=== PATIENT | male | born 1965 | race African-American/Black ===

== ENCOUNTER 2021-12-17 19:30 | Emergency (ER) | payer MEDICAID ==
[~2021-12-17] VITALS: Ht 200.7 cm; Wt 121.0 kg
[2021-12-17] MEDS ORDERED: IBUPROFEN 400MG TABLET PO ONE (21:00)
[2021-12-17] MEDS ORDERED: SODIUM CHLORIDE 0.9% 1,000 ML IV ONE (21:00)
[2021-12-17 21:20] LABS: BASOPHILS % 1.2 % (0.0-2.0); EOSINOPHILS % 3.4 % (0.0-5.0); HEMATOCRIT. 41.6 % (42.0-52.0); HEMOGLOBIN. 14.3 g/dL (14.0-18.0); LYMPHOCYTES % 65.5 % (20.0-50.0); MEAN CORPUSCULAR HEMOGLOBIN 31.8 pg (28.0-32.0); MEAN CORPUSCULAR VOLUME 92.1 fL (80.0-94.0); MEAN PLATELET VOLUME 7.1 fl (7.4-10.4); MONOCYTES % 5.8 % (2.0-8.0); NEUTROPHILS % 24.1 % (40.0-76.0); PLATELET 294 x1000/uL (130-400); RED BLOOD CELL COUNT 4.51 mill/uL (4.7-6.1); RED CELL DISTRIBUTION WIDTH 15.7 % (11.6-14.6)
[2021-12-17 21:31] LABS: CHLORIDE 112 mEq/L (98-107)
[2021-12-17 21:43] LABS: ETHANOL BLOOD 345 mg/dL
[2021-12-18 05:35] VITALS: BP 104/71
== END 2021-12-18 05:42 | disposition home or self-care (01) ==
LOC: ER 19:30
DX: F10.229 Alcohol dependence with intoxication, unspecified (principal); M25.512 Pain in left shoulder; M25.522 Pain in left elbow; E11.9 Type 2 diabetes mellitus without complications; E78.00 Pure hypercholesterolemia, unspecified; I10 Essential (primary) hypertension; Y90.8 Blood alcohol level of 240 mg/100 ml or more; W18.30XA Fall on same level, unspecified, initial encounter; Y93.89 Activity, other specified; Y92.488 Other paved roadways as the place of occurrence of the external cause
CPT/HCPCS: 36415; 70450; 73030; 73080; 80053; 80320; 82962; 85025; 93005; 96360; 99285; J7030; G0480

== ENCOUNTER 2022-01-08 12:22 | Inpatient (IN) | payer MEDICAID ==
[~2022-01-08] VITALS: Ht 200.7 cm; Wt 122.6 kg
[2022-01-08] MEDS ORDERED: MORPHINE SULFATE 4 MG/ML CPJ (NOT FOR IM USE) IV STA (12:55)
[2022-01-08] MEDS ORDERED: ONDANSETRON HCL 4MG/2ML INJ IV STA (12:55)
[2022-01-08] MEDS ORDERED: SODIUM CHLORIDE 0.9% 1,000 ML IV ONE (13:00)
[2022-01-08] MEDS ORDERED: PANTOPRAZOLE SODIUM 40 MG/VIAL IV ONE (13:00)
[2022-01-08] MEDS ORDERED: LEVETIRACETAM 500MG PREMIX 100 ML IV ONE (13:15)
[2022-01-08 13:30] LABS: HEMATOCRIT. 46.2 % (42.0-52.0); HEMOGLOBIN. 15.9 g/dL (14.0-18.0); MEAN CORPUSCULAR HEMOGLOBIN 31.7 pg (28.0-32.0); MEAN CORPUSCULAR VOLUME 92.6 fL (80.0-94.0); MEAN PLATELET VOLUME 7.1 fl (7.4-10.4); PLATELET 240 x1000/uL (130-400); RED BLOOD CELL COUNT 4.99 mill/uL (4.7-6.1); RED CELL DISTRIBUTION WIDTH 15.3 % (11.6-14.6)
[2022-01-08 13:37] LABS: CHLORIDE 105 mEq/L (98-107)
[2022-01-08 13:41] LABS: INR 1.2; PARTIAL THROMBOPLASTIN TIME 27.1 sec (23.4-31.0)
[2022-01-08] MEDS ORDERED: ONDANSETRON HCL 4MG/2ML INJ IV PRN (16:30)
[2022-01-08] MEDS ORDERED: PANTOPRAZOLE SODIUM 40 MG/VIAL IV SCH (16:30)
[2022-01-08] MEDS ORDERED: LEVETIRACETAM 500 MG in SODIUM CHLORIDE 0.9% 100 ML IV SCH (16:30)
[2022-01-08 19:21] LABS: PLATELET ESTIMATE NORMAL
[2022-01-08 21:00] VITALS: BP 130/97
[2022-01-08] MEDS ORDERED: LEVETIRACETAM 500MG PREMIX 100 ML IV SCH (21:00)
[2022-01-08] MEDS ORDERED: NALOXONE HCL 0.4MG/ML VIAL IV PRN (21:45)
[2022-01-08] MEDS: MORPHINE SULFATE 2 MG/ML CPJ (NOT FOR IM USE) IV PRN (21:57)
[2022-01-08] MEDS: LEVETIRACETAM 500MG PREMIX 100 ML IV SCH (23:16)
[2022-01-09] VITALS: BP 116/66
[2022-01-09 04:00] VITALS: BP 134/88
[2022-01-09] MEDS: MORPHINE SULFATE 2 MG/ML CPJ (NOT FOR IM USE) IV PRN ×4 (06:40→20:48)
[2022-01-09 07:22] LABS: CLARITY URINE CLEAR (CLEAR); COLOR URINE DARK YELLOW (YELLOW); KETONES URINE TRACE (NEGATIVE); LEUKOCYTE ESTERASE URINE NEGATIVE (NEGATIVE); NITRITE URINE NEGATIVE (NEGATIVE); OCCULT BLOOD URINE NEGATIVE (NEGATIVE); PH URINE 5.5 (4.5-8.0); PROTEIN URINE NEGATIVE (NEGATIVE); SPECIFIC GRAVITY URINE 1.028 (1.005-1.030)
[2022-01-09 07:37] LABS: *AMPHETAMINES SCREEN URINE NEGATIVE (NEGATIVE); *BARBITURATES SCREEN URINE PRESUMTIVE POSITIVE (NEGATIVE); *BENZODIAZEPINES SCREEN URINE PRESUMTIVE POSITIVE (NEGATIVE); *COCAINE SCREEN URINE NEGATIVE (NEGATIVE); METHADONE URINE SCREEN NEGATIVE (NEGATIVE)
[2022-01-09 07:38] LABS: CANNABINOID URINE SCREEN NEGATIVE (NEGATIVE); OPIATES URINE SCREEN PRESUMTIVE POSITIVE (NEGATIVE); PHENCYCLIDINE URINE SCREEN NEGATIVE (NEGATIVE)
[2022-01-09 08:00] VITALS: BP 133/68
[2022-01-09] MEDS: THIAMINE HCL 100MG TABLET PO SCH (09:41)
[2022-01-09] MEDS: LEVETIRACETAM 500MG PREMIX 100 ML IV SCH ×2 (09:41→20:48)
[2022-01-09] MEDS: FOLIC ACID 1MG TABLET PO SCH (09:41)
[2022-01-09 10:17] LABS: CHLORIDE 106 mEq/L (98-107)
[2022-01-09 10:23] LABS: BASOPHILS % 2.2 % (0.0-2.0); EOSINOPHILS % 1.9 % (0.0-5.0); HEMATOCRIT. 41.6 % (42.0-52.0); HEMOGLOBIN. 14.5 g/dL (14.0-18.0); LYMPHOCYTES % 52.9 % (20.0-50.0); MEAN CORPUSCULAR VOLUME 91.6 fL (80.0-94.0); MEAN PLATELET VOLUME 7.4 fl (7.4-10.4); PLATELET 185 x1000/uL (130-400); RED BLOOD CELL COUNT 4.54 mill/uL (4.7-6.1); RED CELL DISTRIBUTION WIDTH 15.4 % (11.6-14.6)
[2022-01-09 10:25] LABS: HDL CHOLESTEROL 15 mg/dL (40-59); LDL CHOLESTEROL 15 mg/dL (5-100)
[2022-01-09 12:00] VITALS: BP 143/80
[2022-01-09 16:00] VITALS: BP 137/82
[2022-01-09] MEDS: CHLORDIAZEPOXIDE 25MG CAPSULE PO SCH ×2 (19:40→23:14)
[2022-01-09 20:00] VITALS: BP 129/82
[2022-01-09] MEDS ORDERED: CHLORDIAZEPOXIDE 25MG CAPSULE PO SCH ×2 (21:00→22:00)
[2022-01-10] VITALS: BP 127/84
[2022-01-10 04:00] VITALS: BP 130/76
[2022-01-10] MEDS: CHLORDIAZEPOXIDE 25MG CAPSULE PO SCH ×3 (05:26→17:16)
[2022-01-10 08:00] VITALS: BP 136/81
[2022-01-10] MEDS: LEVETIRACETAM 500MG TABLET PO SCH ×2 (08:42→20:50)
[2022-01-10] MEDS: THIAMINE HCL 100MG TABLET PO SCH (08:42)
[2022-01-10] MEDS: PANTOPRAZOLE 40MG DR TABLET PO SCH (08:42)
[2022-01-10] MEDS: FOLIC ACID 1MG TABLET PO SCH (08:43)
[2022-01-10] MEDS: MORPHINE SULFATE 2 MG/ML CPJ (NOT FOR IM USE) IV PRN ×3 (08:43→21:11)
[2022-01-10 12:00] VITALS: BP 127/85
[2022-01-10 16:00] VITALS: BP 117/74
[2022-01-10] MEDS ORDERED: DIPHENOXYLATE/ATROPINE 2.5/0.025MG TABLET PO PRN (18:45)
[2022-01-10 20:00] VITALS: BP 121/76
[2022-01-10] MEDS ORDERED: SODIUM CHLORIDE 0.45% 1,000 ML IV SCH (21:00)
[2022-01-10 23:19] LABS: CHLORIDE 111 mEq/L (98-107)
[2022-01-10 23:20] LABS: BASOPHILS % 0.7 % (0.0-2.0); EOSINOPHILS % 3.3 % (0.0-5.0); HEMATOCRIT. 39.4 % (42.0-52.0); HEMOGLOBIN. 13.8 g/dL (14.0-18.0); LYMPHOCYTES % 62.7 % (20.0-50.0); MEAN CORPUSCULAR HEMOGLOBIN 32.8 pg (28.0-32.0); MEAN CORPUSCULAR VOLUME 93.5 fL (80.0-94.0); MEAN PLATELET VOLUME 7.6 fl (7.4-10.4); MONOCYTES % 6.4 % (2.0-8.0); NEUTROPHILS % 26.9 % (40.0-76.0); PLATELET 129 x1000/uL (130-400); RED BLOOD CELL COUNT 4.22 mill/uL (4.7-6.1); RED CELL DISTRIBUTION WIDTH 15.1 % (11.6-14.6)
[2022-01-11] VITALS: BP 117/72
[2022-01-11 04:00] VITALS: BP 113/67
[2022-01-11 08:00] VITALS: BP 121/92
[2022-01-11] MEDS: LEVETIRACETAM 500MG TABLET PO SCH (08:42)
[2022-01-11] MEDS: THIAMINE HCL 100MG TABLET PO SCH (08:42)
[2022-01-11] MEDS: PANTOPRAZOLE 40MG DR TABLET PO SCH (08:42)
[2022-01-11] MEDS: FOLIC ACID 1MG TABLET PO SCH (08:42)
[2022-01-11] MEDS ORDERED: CHLORDIAZEPOXIDE 25MG CAPSULE PO SCH (09:00)
[2022-01-11 09:27] VITALS: BP 121/92
== END 2022-01-11 10:10 | disposition home or self-care (01) | DRG 53 ==
LOC: ER 12:33 → EDBEDREQ 15:58 → ENRESERV 19:52 → 8WST 20:52
PROVIDERS: ADMIT Family Medicine; ATTEND Family Medicine
DX: G40.909 Epilepsy, unspecified, not intractable, without status epilepticus (principal); E44.1 Mild protein-calorie malnutrition; K76.0 Fatty (change of) liver, not elsewhere classified; F10.139 Alcohol abuse with withdrawal, unspecified; E11.9 Type 2 diabetes mellitus without complications; E78.5 Hyperlipidemia, unspecified; I10 Essential (primary) hypertension; E66.9 Obesity, unspecified; E78.1 Pure hyperglyceridemia; K57.90 Diverticulosis of intestine, part unspecified, without perforation or abscess without bleeding; Z96.641 Presence of right artificial hip joint; G47.33 Obstructive sleep apnea (adult) (pediatric); Z20.822 Contact with and (suspected) exposure to COVID-19; E78.00 Pure hypercholesterolemia, unspecified; Z68.29 Body mass index [BMI] 29.0-29.9, adult; Z79.899 Other long term (current) drug therapy
CPT/HCPCS: 36415; 71045; 74176; 80053; 80061; 80305; 81003; 83880; 84484; 85025; 87015; 87045; 87426; 87427; 87449; 94660; 99285; C9113; J1953; J2270; J2405; J7030; J7040

== ENCOUNTER 2022-02-13 11:24 | Emergency (ER) | payer MEDICAID ==
[~2022-02-13] VITALS: Ht 190.5 cm; Wt 145.0 kg
[2022-02-13] MEDS ORDERED: LEVETIRACETAM 1000MG PREMIX 100 ML IV ONE (11:45)
[2022-02-13 12:17] LABS: BASOPHILS % 1.1 % (0.0-2.0); EOSINOPHILS % 1.1 % (0.0-5.0); HEMATOCRIT. 42.3 % (42.0-52.0); LYMPHOCYTES % 62.8 % (20.0-50.0); MEAN CORPUSCULAR HEMOGLOBIN 31.9 pg (28.0-32.0); MEAN CORPUSCULAR VOLUME 96.6 fL (80.0-94.0); MEAN PLATELET VOLUME 7.7 fl (7.4-10.4); MONOCYTES % 4.7 % (2.0-8.0); NEUTROPHILS % 30.3 % (40.0-76.0); PLATELET 158 x1000/uL (130-400); RED BLOOD CELL COUNT 4.38 mill/uL (4.7-6.1)
[2022-02-13 12:22] LABS: CHLORIDE 112 mEq/L (98-107)
[2022-02-13 12:36] LABS: ETHANOL BLOOD 361 mg/dL
[2022-02-13 12:39] LABS: CLARITY URINE CLEAR (CLEAR); COLOR URINE YELLOW (YELLOW); KETONES URINE NEGATIVE (NEGATIVE); LEUKOCYTE ESTERASE URINE NEGATIVE (NEGATIVE); NITRITE URINE NEGATIVE (NEGATIVE); OCCULT BLOOD URINE NEGATIVE (NEGATIVE); PH URINE 5.5 (4.5-8.0); PROTEIN URINE NEGATIVE (NEGATIVE); SPECIFIC GRAVITY URINE 1.004 (1.005-1.030); UROBILINOGEN URINE 0.2 E.U./dL (0.2-1.0)
[2022-02-13] MEDS ORDERED: FOLIC ACID 1 MG, THIAMINE HCL 100 MG, MVI, ADULT NO.1 10 ML in DEXTROSE 5% WATER 1,000 ML IV ONE ×4 (12:45)
[2022-02-13 12:58] LABS: *BARBITURATES SCREEN URINE NEGATIVE (NEGATIVE); CANNABINOID URINE SCREEN NEGATIVE (NEGATIVE); METHADONE URINE SCREEN NEGATIVE (NEGATIVE); OPIATES URINE SCREEN NEGATIVE (NEGATIVE); PHENCYCLIDINE URINE SCREEN NEGATIVE (NEGATIVE)
[2022-02-13 13:00] LABS: *AMPHETAMINES SCREEN URINE NEGATIVE (NEGATIVE); *COCAINE SCREEN URINE NEGATIVE (NEGATIVE)
[2022-02-13 13:03] LABS: *BENZODIAZEPINES SCREEN URINE PRESUMTIVE POSITIVE (NEGATIVE)
[2022-02-13] MEDS ORDERED: KEPP500 MT (13:34)
[2022-02-13 20:00] VITALS: BP 116/72
== END 2022-02-13 20:25 | disposition home or self-care (01) ==
LOC: ER 11:26
DX: R56.9 Unspecified convulsions (principal); F10.229 Alcohol dependence with intoxication, unspecified; Y90.8 Blood alcohol level of 240 mg/100 ml or more; E11.9 Type 2 diabetes mellitus without complications; E78.00 Pure hypercholesterolemia, unspecified; I10 Essential (primary) hypertension
CPT/HCPCS: 36415; 80053; 80305; 80320; 81003; 85025; 93005; 96365; 96375; 99285; J1953; J3411; J3490; J7070; G0480